=== PATIENT | female | born 1960 | race Caucasian/White ===

== ENCOUNTER 2021-12-30 01:38 | Emergency (ER) | payer MEDICAID, SELFPAY ==
[2021-12-30 01:38] VITALS: BP 149/86; PULSE 77; RESP 18; TEMP 36.1; O2SAT 95; BMI 23.9
--- NOTE | 2021-12-30 01:50 | RAD_ITS ---
INDICATION: trauma -- right thumb injury EXAMINATION/TECHNIQUE: X-RAY - RIGHT HAND XR Fingers Min 2 Views 3 VIEWS COMPARISON: None. FINDINGS: SOFT TISSUES: Diffuse thumb edema. No radiopaque foreign body. BONES/JOINTS: Comminuted first distal phalanx fracture predominantly deep to nail bed, with continuation to lateral margin of the interphalangeal joint. No dislocation.. Diffuse mild osteoarthritis about the wrist. No aggressive osseous lesion. RAD/Finger(s) Min 2 Views IMPRESSION: First distal phalanx comminuted fracture Electronically Signed: Tico Brown MD at 2:33 EST ,
[2021-12-30] MEDS: Acetaminophen 325 MG Tablet 650 MG PO (02:30)
[2021-12-30] MEDS: Ibuprofen 600 MG Tablet PO (02:30)
[2021-12-30] MEDS: Lidocaine 1% (20 ml mdv) 20 ML Vial 10 ML INFILT (02:32)
--- NOTE | 2021-12-30 02:58 | EX.ED.UPPERE ---
HPI History of Present Illness Chief Complaint: Upper Extremity Injury Informant: patient Narrative Narrative: Patient evaluated for right thumb injury. [place] [employer] trailer. She is unsure when her last tetanus was. Has associated numbness and pain of her thumb. No other injuries reported. Has not take anything for pain prior to arrival. Patient is in [place] [employer]. Lives in the [facility]. Tetanus Immunization: Unknown PFSH PFSH Medical History no medical history Home Medications amoxicillin 875 mg-potassium clavulanate 125 mg tablet 1 tab PO Q12H #14 tabs 12/30/21 [Rx Last Taken Unknown] bisoprolol fumarate 5 mg tablet 2.5 mg PO DAILY 12/30/21 [History Last Taken Unknown] celecoxib 200 mg capsule 200 mg PO BID 12/30/21 [History Last Taken Unknown] fluticasone 100 mcg-salmeterol 50 mcg/dose blistr powdr for inhalation (Advair Diskus) 1 inh inhalation BID 12/30/21 [History Last Taken Unknown] hydrocodone-acetaminophen 5-325mg 5mg-325mg 1 tab PO Q6H PRN pain 3 days #12 tabs 12/30/21 [Rx Last Taken Unknown] ondansetron 4 mg disintegrating tablet 4 mg PO Q8H PRN nausea and vomiting #10 tabs 12/30/21 [Rx Last Taken Unknown] tiotropium bromide 18 mcg capsule with inhalation device (Spiriva with HandiHaler) 1 cap inhalation DAILY 12/30/21 [History Last Taken Unknown] Allergy/AdvReac Type Severity Reaction Status Date / Time metronidazole [From Flagyl] Allergy Itching Verified 12/30/21 01:42 moxifloxacin [From Avelox] Allergy Itching Verified 12/30/21 01:42 Social History Smoking Status: Never smoker ROS ROS ED Constitutional Constitutional ED: Denies chills or fever(s) Eyes Eyes: Denies change in vision ENT ENT ED: Denies sore throat Cardiovascular Cardiovascular: Denies chest pain Respiratory/Chest Respiratory/Chest: Denies cough Gastrointestinal Gastrointestinal: Denies nausea or vomiting Musculoskeletal Musculoskeletal: Reports other Details: right thumb pain ; Denies back pain or myalgias Integumentary Reports Abrasions Neurologic Neurologic: Denies headache(s), paresthesias or weakness Psychiatric Psychiatric: Denies anxiety Hematologic/Lymphatic Hematologic/Lymphatic: Denies easy bleeding or easy bruising EXAM Physical Exam Const Vital Signs: 12/30/21 01:38 Temperature 97 F L Temperature Source Temporal Pulse Rate 77 Respiratory Rate 18 Blood Pressure 149/86 H Blood Pressure Mean 107 Pulse Ox 95 Oxygen Delivery Method Room Air Positive well nourished and well developed General Appearance ED: well developed and NAD HEENT Reports moist mucous membranes normocephalic and atraumatic Eyes PERRL and EOMs intact bilaterally Neck full ROM and supple Chest Wall inspection of chest normal and palpation of chest normal Resp normal respiratory effort and clear to auscultation bilaterally Cardio regular rate, regular rhythm and no murmurs Extremity full ROM Extremity Narrative: Edema and ecchymosis noted to the right distal thumb. Tenderness to palpation of the right first distal phalanx. Range of motion preserved. Neuro oriented x3, moves all extremities, no focal motor deficits and no sensory deficits noted Psych mental status grossly normal Skin Skin Narrative: subungual hematoma right thumb involving proximal third of the nail. No nail fold laceration appreciated. There is a small amount of blood oozing from the medial/proximal aspect of the nail but again no laceration appreciated. Lesions: no lesions Rashes: no rashes MDM MDM MDM Narrative Medical decision making narrative: Patient evaluated for injury to her right thumb. X-ray obtained which shows a first distal phalanx comminuted fracture. This interpreted by myself as well as radiology. On exam patient is a subungual hematoma but no obvious laceration. Patient is started on Augmentin given exposure to barn animals and to be covered in case this is an open fracture however given that there is no obvious nailfold laceration we will refrain from removing the nail at this time. Patient is placed in fabricated thumb spica splint by myself. Prior to this the nail is trephinated, soaked in Hibiclens/warm water and hand is cleaned. Digital nerve block performed for added pain control. Patient is given ibuprofen and Tylenol. She is not anything stronger at this time. She will follow-up with [place] but is given local orthopedic follow-up. Counseled on return precautions. Given a copy of her imaging for when she follows up. Verbalizes agreement nursing of this plan. Counseled on localized splint care. Discharged home in stable and improved condition. Radiography Diagnostic Testing: Clinical Impression(s) from Imaging Studies Finger X-Ray 12/30/21 01:50 IMPRESSION: First distal phalanx comminuted fracture Electronically Signed: Tico Brown MD at 2:33 EST , Procedures Upper Extremity Splints Upper Extremity Splint: Orthoglass and Thumb Spica Splint Fabrication: Fabricated Location: Right Discharge Plan Triage Chief Complaint: Upper Extremity Injury ED Provider: Rosa Fu Dx/Rx/DC Orders Clinical Impression: Fracture of distal phalanx of finger of right hand, Subungual hematoma of finger of right hand Instructions: ED Subungual Hematoma, ED Fracture, Thumb Prescriptions: New amoxicillin-pot clavulanate 875-125 mg tablet 1 tab PO Q12H Qty: 14 0RF hydrocodone-acetaminophen 5-325 mg tablet 1 tab PO Q6H PRN (Reason: pain) 3 Days Qty: 12 0RF ondansetron 4 mg tablet,disintegrating 4 mg PO Q8H PRN (Reason: nausea and vomiting) Qty: 10 0RF No Action celecoxib 200 mg capsule 200 mg PO BID bisoprolol fumarate 5 mg tablet 2.5 mg PO DAILY Label Comments: TAKE 1/2 TABLET BY MOUTH EVERY DAY fluticasone propion-salmeterol [Advair Diskus] 100-50 mcg/dose blister with device 1 inh INHALATION BID Spiriva with HandiHaler 18 mcg Capsule, W/Inhalation Device 1 cap INHALATION DAILY Rx Instructions: puncture 1 cap using device; one dose = 2 inhalations Primary Care Provider: Soledad Guzman,Out of Referrals: Morro Quan DO [Med Staff - Active Staff] - 3-5 Days [facility] ,Out of [Primary Care Provider] - Disposition Disposition: Home, Self Care
[2021-12-30] MEDS: Diphth,Pertuss(Acell),Tet Vac 0.5 ML Vial IM (03:48)
[2021-12-30] MEDS: Amox/Clavulanate 875 MG Tablet PO (03:49)
== END 2021-12-30 04:32 | disposition home or self-care (01) ==
PROVIDERS: Emergency Provider Emergency Medicine; Visit Provider Emergency Medicine
DX: S62.521B Displaced fracture of distal phalanx of right thumb, initial encounter for open fracture (principal); W23.2XXA Caught, crushed, jammed or pinched between a moving and stationary object, initial encounter; Z23 Encounter for immunization
CPT/HCPCS: 29130; 73140; 90471; 90715; 99283